=== PATIENT | male | born 1935 | race Caucasian/White ===

== ENCOUNTER 2018-08-29 09:27 | Day surgery (SDC) | payer MEDICARE, OTHER ==
[~2018-08-29] VITALS: Ht 172.7 cm; Wt 86.9 kg
[~2018-08-29 09:27] MED LIST: ASCO500 PO; ASPI81EC PO; CALCIUM-MAG-ZINC PO; FISH1000 PO; LISI20; LISI20 PO; LOVA20; LOVA40 PO; METF500; MULVITA PO; NIFE10; SILD50TA PO; STOMUL PO
== END 2018-08-29 11:33 | disposition home or self-care (01) ==
LOC: ORSCSDS 09:27
PROVIDERS: Internal Medicine Gastroenterology
PROC: 0DBK8ZX Excision of Ascending Colon, Via Natural or Artificial Opening Endoscopic, Diagnostic (ICD-10-PCS; principal; 2018-08-29 10:45)
DX: Z12.11 Encounter for screening for malignant neoplasm of colon (principal); Z86.010 Personal history of colon polyps; K57.30 Diverticulosis of large intestine without perforation or abscess without bleeding; Z80.0 Family history of malignant neoplasm of digestive organs; E11.9 Type 2 diabetes mellitus without complications; G47.30 Sleep apnea, unspecified; Z87.891 Personal history of nicotine dependence; E66.9 Obesity, unspecified; Z68.30 Body mass index [BMI] 30.0-30.9, adult; Z79.82 Long term (current) use of aspirin; Z79.84 Long term (current) use of oral hypoglycemic drugs; Z79.899 Other long term (current) drug therapy
CPT/HCPCS: 82947; 88305; J2704; J7120

== ENCOUNTER 2018-12-14 10:18 | Day surgery (SDC) | payer MEDICARE, OTHER ==
[~2018-12-14] VITALS: Ht 175.3 cm; Wt 88.9 kg
[~2018-12-14 10:18] MED LIST changes: +Aspirin EC81 MG PO; +Glucosamine &1 EACH PO; +METF500C PO
[2018-12-14] MEDS ORDERED: BRIMONIDINE TART5 M1 (11:09)
--- NOTE | 2018-12-14 11:31 | NUR ---
12/14/18 1131 Nadeen Bolden ATTEMPT IV IN LEFT FOREARM & LEFT HAND. IV PLACED BY ORSC.DLB IN LEFT INNER WRIST & RIGHT HAND CAPPED NEEDLE FOR RIGHT CARPAL TUNNEL SURGERY.
--- NOTE | 2018-12-14 11:58 | NUR ---
12/14/18 1158 Rachell Argueta PATIENT HAD A GILBERTO BLOCK PRIOR TO INCISION. PATIENT SEDATED BUT COULD NOT HOLD HIS HAND STRAIGHT OR STILL. PATIENT KEPT TRYING TO REACH UP WITH OPERATIVE HAND. CASE CONVERTED TO A GENERAL ANESTHETIC PER ANESTHESIOLOGIST WITH LMA.
--- NOTE | 2018-12-14 13:34 | NUR ---
12/14/18 1333 Shayna Cleary at 1245 report to [facility]
== END 2018-12-14 13:55 | disposition home or self-care (01) ==
LOC: ORSCSDS 10:18
PROVIDERS: Orthopaedic Surgery
PROC: 01N50ZZ Release Median Nerve, Open Approach (ICD-10-PCS; principal; 2018-12-14 11:30)
DX: G56.01 Carpal tunnel syndrome, right upper limb (principal); I10 Essential (primary) hypertension; Z87.891 Personal history of nicotine dependence; R73.03 Prediabetes; Z79.82 Long term (current) use of aspirin; Z79.84 Long term (current) use of oral hypoglycemic drugs
CPT/HCPCS: 82947; J0690; J1100; J2250; J2405; J3010; J7120

== ENCOUNTER 2023-03-05 01:11 | Inpatient (IN) | payer MEDICARE, OTHER ==
[~2023-03-05] VITALS: Ht 175.3 cm; Wt 88.9 kg
[~2023-03-05 01:11] MED LIST changes: +BRIMONIDINE TART5 M1
[2023-03-05 01:40] LABS: BASOPHILS ABSOLUTE AUTO 0.06 K/mm3 (0.00-0.23); BASOPHILS PERCENT AUTO 0 % (0-2); EOSINOPHILS ABSOLUTE AUTO 0.05 K/mm3 (0.00-0.68); EOSINOPHILS PERCENT AUTO 0 % (0-6); Hemoglobin 13.7 g/dL (13.5-17.5); IMMATURE GRAN ABSOLUTE AUTO 0.05 K/mm3 (0.00-0.10); IMMATURE GRAN PERCENT AUTO 0 % (0-1); LYMPHOCYTES ABSOLUTE AUTO 2.03 K/mm3 (0.84-5.20); LYMPHOCYTES PERCENT AUTO 13 % (21-46); MONOCYTES ABSOLUTE AUTO 0.83 K/mm3 (0.16-1.47); MONOCYTES PERCENT AUTO 5 % (4-13); Mean Corpuscular HGB 31.5 pg (26.0-34.0); Mean Corpuscular HGB Conc 32.6 g/dL (31.5-36.5); Mean Corpuscular Volume 97 fL (80-100); Mean Platelet Volume 10.8 fL (9.1-12.4); NEUTROPHILS ABSOLUTE AUTO 12.46 K/mm3 (1.96-9.15); NEUTROPHILS PERCENT AUTO 81 % (41-73); Platelet Count 246 K/mm3 (150-400); RDW Coefficient Variation 13.2 % (11.7-14.2); RDW Standard Deviation 47.3 fL (35.1-46.3); Red Blood Cell Count 4.35 M/mm3 (4.30-5.90); White Blood Cell Count 15.48 K/mm3 (4.00-11.30)
[2023-03-05 01:59] LABS: Albumin, Blood 3.3 g/dL (3.4-5.0); Albumin/Globulin Ratio 0.8 (0.8-1.8); Bilirubin, Total 0.8 mg/dL (0.1-1.0); Bun/Creatinine Ratio 17.6 (12.0-20.0); Calcium, Blood 9.3 mg/dL (8.5-10.1); Creatinine, Blood 0.91 mg/dL (0.60-1.20); Globulin, Blood 4.4 g/dL (2.2-4.0); Potassium, Blood 4.4 mmol/L (3.5-5.5); Total Protein, Blood 7.7 g/dL (6.4-8.2)
[2023-03-05 03:28] LABS: Influenza A, PCR NEGATIVE (NEGATIVE); Influenza B, PCR NEGATIVE (NEGATIVE); Resp Syncytial Virus, PCR NEGATIVE (NEGATIVE); SARS-Cov-2 (COVID-19) PCR, MMC NEGATIVE (NEGATIVE)
[2023-03-05 03:41] LABS: Anti-Xa UFH, PHA Monitoring <0.10 IU/mL; D-Dimer, Quantitative 0.72 mg/L FEU (0.00-0.52); International Normalized Ratio 0.95
[2023-03-05 03:48] LABS: Magnesium, Blood 1.8 mg/dL (1.6-2.4); Thyroid Stimulating Hormone 3.25 uIU/mL (0.360-4.800)
[2023-03-05 14:01] VITALS: BP 129/95
[2023-03-05 15:33] VITALS: BP 111/47
[2023-03-05] MEDS ORDERED: PIOG15 PO (17:11)
[2023-03-05] MEDS ORDERED: Amaryl1 MG PO (17:12)
--- NOTE | 2023-03-05 18:55 | NUR ---
ADMISSION/SHIFT SUMMARY: PT ARRIVED FROM ER AT APPROX 1400 TODAY. PT ARRIVES A&Ox4, LOS [place]YOTES W/HEARING AIDES, ANSWERS QUESTIONS APPROPRIATELY AND COOPERATIVE W/CARE. PT DYSPNEIC W/ACTIVITY, DENIES SOB AT REST, O2 SATS >93% ON RA. PT DENIES CP SINCE ARRIVAL TO ROOM, AFIB ON MONITOR W/RATE 70s-80s. ECHO COMPLETED IN ER. CARDIOLOGY CONSULT COMPLETED AT BEDSIDE, W/PLAN FOR PROCEDURE TOMORROW, PT TO BE NPO AT MIDNIGHT. HEPARIN INFUSING PER ORDERS. PT WITH C/O NAUSEA, BUT DENIES NEED FOR MEDICATION. PT RESTING QUIETLY IN BED W/CALL LIGHT IN REACH. WILL CONTINUE TO MONITOR AND TREAT ACCORDINGLY UNTIL CHANGE OF SHIFT.
[2023-03-05 20:00] VITALS: BP 116/73
--- NOTE | 2023-03-05 23:02 | NUR ---
ASSUMPTION OF CARE THIS RN ASSUMED CARE OF PT AT 1900, BEDSIDE SHIFT REPORT FROM YVETTE. PT A&O X3-4. VSS. PT DENIES CP OR PRESSURE, DENIES SOB OR PALPITATIONS. PT ALSO DENIES DIZZINESS. PT DENIES ANY GENERAL PAIN AT THIS TIME. PT DENIES ANY NEEDS AT THIS TIME. ATTENDS IN PLACE. PT USING URINAL AT BEDSIDE INDEPENDENTLY. CALL LIGHT IN REACH
[2023-03-06] VITALS (14 sets, daily range): BP systolic 87–142; BP diastolic 52–101
[2023-03-06 05:04] LABS: Bun/Creatinine Ratio 22.5 (12.0-20.0); Calcium, Blood 9.3 mg/dL (8.5-10.1); Creatinine, Blood 1.11 mg/dL (0.60-1.20); Potassium, Blood 4.3 mmol/L (3.5-5.5)
[2023-03-06 05:12] LABS: Hematocrit 39.2 % (37.0-53.0); Hemoglobin 13.4 g/dL (13.5-17.5); Mean Corpuscular HGB 32.1 pg (26.0-34.0); Mean Corpuscular HGB Conc 34.2 g/dL (31.5-36.5); Mean Corpuscular Volume 94 fL (80-100); RDW Coefficient Variation 13.3 % (11.7-14.2); RDW Standard Deviation 45.2 fL (35.1-46.3); Red Blood Cell Count 4.17 M/mm3 (4.30-5.90); White Blood Cell Count 15.45 K/mm3 (4.00-11.30)
[2023-03-06 05:27] LABS: Mean Platelet Volume 11.4 fL (9.1-12.4); Platelet Count 202 K/mm3 (150-400)
--- NOTE | 2023-03-06 05:28 | NUR ---
UPDATE HEPARIN GTT STOPPED PER PHARMACY AT 0500 FOR PROCEDURE THIS AM. PHARMACY NOTIFIED.
--- NOTE | 2023-03-06 06:43 | NUR ---
SHIFT SUMMARY PT REMAINS A&O X 3-4. VSS REMAIN STABLE; HRR REMAIN AFIB W/RATE IN 80'S - 90'S. NO CP OR PRESSURE, SOB, OR DIZZINESS THROUGHOUT THE SHIFT. PT REST ON AND OFF DURING THE NIGHT BUT HAD UNEVENTFUL NIGHT. CONTINUES TO USE URINAL INDEPENDENTLY IN BED. PT HAD BM THIS SHIFT; WNL. HEPARIN STOPPED PER PHARMACY ORDERS FOR PROCEDURE TODAY. PT NPO SINCE 0000 FOR PROCEDURE. WILL UPDATE ONCOMING RN
--- NOTE | 2023-03-06 18:11 | NUR ---
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 DR CRAIG TO BEDSIDE THIS EVENING TO DISCUSS PROCEDURE OPTIONS W/FAMILY, ALL QUESTIONS HAVE BEEN ANSWERED AT THIS TIME, FAMILY TO CONTINUE TO DISCUSS OPTIONS AND LET DR GOMEZ KNOW TOMORROW. PT A&Ox4, VERY AUGUSTINE W/ELSI HEARING AIDS. O2 SATS >92% ON RA, PT DENIES SOB AT REST BUT REPORTS DYPSNEA W/ACTIVITY. AFIB ON MONITOR, RATE 80s-90s, PT DENIES CP. AT THIS TIME, PT IS RESTING QUIETLY IN BED W/CALL LIGHT IN REACH. WILL CONTINUE TO MONITOR AND TREAT ACCORDINGLY UNTIL CHANGE OF SHIFT.
--- NOTE | 2023-03-06 22:39 | NUR ---
PT A&OX4, COOPERATIVE WITH CARE AND ABLE TO MAKE NEEDS KNOWN. 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 PT ON RA AND MAINTAINING O2 SATURATION ABOVE 92%, DENIES SOB. HR AFIB 80'S-90'S, PT DENIES CHEST PAIN/PRESSURE. R RADIAL SITE FROM ANGIO TODAY IS SOFT & NONTENDER, 0 HEMATOMA, 0 PAIN. PT NPO AT MIDNIGHT FOR POSSIBLE PROCEDURE 03/07. PT FELL ASLEEP WATCHING TV, CALL LIGHT WITHIN REACH.
[2023-03-07] VITALS (12 sets, daily range): BP systolic 101–129; BP diastolic 62–97
--- NOTE | 2023-03-07 04:52 | NUR ---
SHIFT SUMMARY PT HAS SLEPT WELL THE MAJORITY OF THE NIGHT. HE WOKE UP A COUPLE TIMES WANTING THE BLANKETS OFF AND THEN WANTING THEM BACK ON. PT CONTINUES TO BE ALERT AND ORIENTED X 4, ABLE TO MAKE NEEDS KNOWN, ELIM IRA. PT CURRENTLY ON 2L NC HIS OXYGEN SATURATION INTERMITTENTLY DROPS INTO HIGH 80'S WHEN SLEEPING, PT DENIES SOB, MAINTAINING 02 SATURATION ABOVE 90%. HR AFIB 100'S, PT DENIES CHEST PAIN/PRESSURE. PT USES URINAL INDEPENDENTLY NEEDED. R RADIAL SITE CONTINUES TO BE NONTENDER/0 HEMATOMA/0 BLEEDING/ NOT PAINFUL. PT SLEEPING IN BED, CALL LIGHT WITHIN REACH.
[2023-03-07 07:45] LABS: Hematocrit 38.3 % (37.0-53.0); Hemoglobin 12.8 g/dL (13.5-17.5); Mean Corpuscular HGB Conc 33.4 g/dL (31.5-36.5); Mean Corpuscular Volume 96 fL (80-100); Mean Platelet Volume 10.7 fL (9.1-12.4); Platelet Count 276 K/mm3 (150-400); RDW Coefficient Variation 13.2 % (11.7-14.2); RDW Standard Deviation 47.4 fL (35.1-46.3); White Blood Cell Count 13.29 K/mm3 (4.00-11.30)
[2023-03-07 08:29] LABS: Anion Gap 6 mmol/L (6-16); Blood Urea Nitrogen 31 mg/dL (8-24); Bun/Creatinine Ratio 29.5 (12.0-20.0); CHOL/HDL RATIO 3.3; CO2, Blood 30 mmol/L (21-32); Calcium, Blood 9.6 mg/dL (8.5-10.1); Chloride, Blood 107 mmol/L (98-108); Cholesterol 207 mg/dL (50-200); Creatinine, Blood 1.05 mg/dL (0.60-1.20); Glomerular Filtration Rate 70 (60-); Glucose, Blood 170 mg/dL (70-99); HDL Cholesterol 62 mg/dL (>39); LDL/HDL RATIO 2.1; Low Density Lipoprotein Chol 128 mg/dL (0-110); Potassium, Blood 3.6 mmol/L (3.5-5.5); Sodium, Blood 143 mmol/L (136-145); Triglycerides 84 mg/dL (30-160); Very Low Density Lipoprot Chol 16 mg/dL (6-32)
--- NOTE | 2023-03-07 08:45 | NUR ---
AM NOTE: PATIENT ALERT AND ORIENTED X4. HARD OF HEARING, BILATERAL HEARING AIDS IN PLACE. DENIES NUMBNESS/TINGLING. DENIES HEADACHE OR VISION CHANGES AT THIS TIME. ON 2L NASAL CANNULA UPON SHIFT START, THIS RN TITRATED TO ROOM AIR AND PATIENT DESATS TO 88%. 2L O2 NASAL CANNULA REPLACED AND PATIENT SATING 96%. DENIES COUGH. DENIES SOB AT REST, PATIENT STATES WITH EXCERTION HE BECOMES INCREASINGLY SHORT OF BREATH AND SWEATY. LUNGS SOUNDING CLEAR AND DIM IN BASES. TELE SHOWING AFIB WITH HR 80-110'S. DENIES CHEST PAIN/PRESSURE/PALPITATIONS. PPP. S/P ANGIO 03/06 WITH RIGHT RADIAL SITE. SITE WNL, TEGADERM AND ARMBOARD IN PLACE. NO SIGNS OF BLEEDING. PATIENT REMINDED OF RADIAL PRECAUTIONS. DENIES ABDOMINAL PAIN/NAUSEA. USING URINAL TO VOID. NPO AT THIS TIME. PLAN FOR CARDIOLOGY MEETING AROUND NOON. PATIENT AND UPDATED. CALL LIGHT IN REACH. PATIENT DENIES NEEDS AT THIS TIME, LAYING IN BED WATCHING TV.
--- NOTE | 2023-03-07 09:42 | NUR ---
PATIENT ROSEANN AT BEDSIDE. THIS RN UPDATED ON MORNING AND PLAN FOR CARDIOLOGY MEETING AROUND NOON.
--- NOTE | 2023-03-07 11:05 | NUR ---
DR. MEDLEY BY TO ASSESS PATIENT, THIS RN AT BEDSIDE. NO NEW ORDERS FOR THIS RN TO PLACE. AWAITING CARDIOLOGY. FAMILY REMAINS AT BEDSIDE. AFTERNOON VITALS STABLE.
--- NOTE | 2023-03-07 12:09 | NUR ---
DR. GOMEZ AND DR. CRAIG BY TO ASSESS PATIENT. PLAN FOR ANGIO WITH STENT PLACEMENT THIS AFTERNOON. CONSENT SIGNED AND IN CHART. PATIENT'S 2 DAUGHTERS AND AT BESIDE FOR PROVIDER VISIT.
--- NOTE | 2023-03-07 13:08 | NUR ---
PATIENT TO [facility] AT THIS TIME.
--- NOTE | 2023-03-07 15:32 | NUR ---
PATIENT RETURNS TO PCU POST SENIOR SQL DATABASE DEVELOPER AT 1528. VITAL SIGNS STABLE, ON ROOM AIR. REMAINS AFIB WITH HR 80'S. DENIES CHEST PAIN/PRESSURE. RIGHT RADIAL SITE WITH TR BAND AND ARM BOARD IN PLACE. PATIENT AND FAMILY AT BEDSIDE INSTRUCTED ON POST ANGIOGRAM RADIAL PRECAUTIONS. PATIENT ABLE TO VERBALIZE TEACHING BACK TO THIS RN. SITE WNL, SOFT AND NONTENDER. PATIENT SITTING UP IN BED WITH RIGHT ARM RESTING ON PILLOWS. CALL LIGHT IN REACH. POST VITALS IN PROGRESS.
--- NOTE | 2023-03-07 18:10 | NUR ---
SHIFT SUMMARY: NO ACUTE CHANGES, SEE PREVIOUS NOTES. NO CHANGES TO TELE. PATIENT REMAINS ON ROOM AIR. S/P ANGIOGRAM VITALS STABLE AND COMPLETED. ALL OF AIR REMOVED FROM TR BAND AT 1803. TR BAND TO BE REMOVED IN ONE HOUR. ARM BOARD REMAINS IN PLACE. SITE WNL, NO SIGNS OF BLEEDING. PATIENT EATING DINNER AT THIS TIME. DENIES NEEDS. CALL LIGHT IN REACH.
--- NOTE | 2023-03-07 20:20 | NUR ---
PT IS ALERT AND ORIENTED X 4, ABLE TO MAKE NEEDS KNOWN AND COOPERATIVE WITH CARE. HE IS HARD OF HEARING AND HAS BILATERAL HEARING AIDS. DAY SHIFT REPORTED THAT PT HAD SMALL NOSE BLEED FROM LEFT NOSTRIL TODAY, WHICH PT SAID IS NORMAL FOR HIM, HE HAS A PIECE OF TISSUE WEDGED INTO HIS LEFT NOSTRIL TO HELP WITH THE BLEEDING, HE DOES NOT WANT TO REMOVE IT RIGHT NOW AND SAID HE WOULD REMOVE IT BEFORE BED. THIS IS WHY PT DOES NOT WANT TO WEAR OXYGEN RIGHT NOW, HE IS ON RA AND OXYGEN SATURATION WILL INTERMITTENTLY DROP INTO THE HIGH 80'S THEN QUICKLY GO BACK UP INTO THE 90'S, PT DOES NOT FEEL SOB. HR AFIB 80'S-110'S, PT DENIES CHEST PAIN/PRESSURE, BP STABLE. ANGIO W/INTERVENTIONS PERFORMED TODAY VIA R RADIAL SITE. SITE HAS NO REDNESS/SWELLING/PAIN/ AND HAS 0 HEMATOMA. TR BAND REMOVED AT APPROXIMATELY 1917, SITE CLEANED, SKIN PREP APPLIED, AND TEGADERM PLACED ON SITE. PT SAID IT WAS A LITTLE TOO TRANSMITTER OPERATOR HIS ROOM, I PLACED A CALL TO MAINTENANCE AND ASKED THEM TO TURN THERMOSTAT TO 68 PER PT REQUEST. PT IS RESTING IN BED & WATCHING TV, CALL LIGHT WITHIN REACH.
[2023-03-08 03:16] VITALS: BP 124/81
--- NOTE | 2023-03-08 04:58 | NUR ---
SHIFT SUMMARY PT CONTINUES TO BE ALERT AND ORIENTED X 4, ABLE TO MAKE NEEDS KNOWN, [place]. PT CURRENTLY ON 2L NC HIS OXYGEN SATURATION INTERMITTENTLY DROPS INTO HIGH 80'S WHEN SLEEPING, PT DENIES SOB, MAINTAINING 02 SATURATION ABOVE 90%. HR AFIB 100'S, PT DENIES CHEST PAIN/PRESSURE. PT USES URINAL INDEPENDENTLY NEEDED. R RADIAL SITE CONTINUES TO BE NONTENDER/0 HEMATOMA/0 BLEEDING/ NOT PAINFUL, ARM BOARD IN PLACE. PT HAS BEEN AWAKE ON AND OFF TONIGHT, HE DONALD HE HAS BEEN HAVING A HARD TIME SLEEPING WHILE IN THE HOSPITAL. PT IS AWAKE IN BED, WATCHING TV, CALL LIGHT WITHIN REACH.
[2023-03-08 08:00] VITALS: BP 125/75
--- NOTE | 2023-03-08 10:22 | NUR ---
0800 ASSUMED CARE PATIENT AWAKE ALERT AND ORIENTED HOWEVER HARD OF HEARING. PATIENT MONTOYA WELL. PATIENT HAS ON ARM BOARD TO RIGHT WRIST WITH TEGADERM ON SITE. PATIENT HAS VOIDED IN URINAL WITHOUT DIFFICULTY. VS STABLE PATIENT FEBRILE. LUNGS ARE CLEAR T/O. ABD SOFT + BOWELTONES PRESENT. PATIENT HAS PIV SL. NO EDEMA TO NOTE. NO PAIN AT THIS TIME. WILL FOLLOW CARE AND TREATMENT PLAN FOR THE DAY.
[2023-03-08] MEDS ORDERED: ELIQUIS2.5 MG PO (11:19)
[2023-03-08] MEDS ORDERED: ASPI81CH PO (11:20)
[2023-03-08] MEDS ORDERED: ATOR80 PO (11:20)
[2023-03-08] MEDS ORDERED: CLOP75 PO (11:21)
[2023-03-08] MEDS ORDERED: JARDIANCE10 MG PO (11:21)
[2023-03-08] MEDS ORDERED: SPIR25 PO (11:22)
[2023-03-08] MEDS ORDERED: METO50ER PO (11:22)
[2023-03-08] MEDS ORDERED: METF500 PO (11:23)
[2023-03-08] MEDS ORDERED: SOAANZ20 M1 PO (11:23)
[2023-03-08] MEDS ORDERED: PANT40 PO (11:24)
[2023-03-08 13:00] VITALS: BP 113/90
--- NOTE | 2023-03-08 13:10 | NUR ---
1230-- PATIENT ATE HIS LUNCH 100%. PATIENT DRESSING TO WALK THE HALLS AND BE DISCHARGED S/P OXYGEN ASSESSMENT NEED. PATIENT WALKED WITH A WALKER OVER 200 FEET WITH SOME TACHYPNEA PRESENT BUT NEVER DROPPED HIS OXYGENATION WHILE ON ROOM AIR. DID DISCHARGE TEACHING AND HAD PRESENT TO HEAR OF THE FUTURE DR APPOINTMENTS AND FUTURE MEDICATIONS THAT HE IS TO CDS SALES ADVISOR AT HIS PHARMACY. SON WAS CALLED TO MEET THEM AT HOME. FILER REPAIRER'S WHEELED HIM OUT TO THE CAR S/P BOTH IV'S DC'D BY PRIMARY RN. DC VITALS STABLE SEE VS NOTE. NO ACUTE CONCERNS AT DC.
== END 2023-03-08 13:10 | disposition home or self-care (01) | DRG 321 ==
LOC: ER 01:11 → PCU 01:12 → ERHOLD 01:12 → PCU 03:10
PROVIDERS: Internal Medicine; Student in an Organized Health Care Education/Training Program; ADMIT Internal Medicine
PROC: B24BZZZ Ultrasonography of Heart with Aorta (ICD-10-PCS; 2023-03-05)
PROC: B2111ZZ Fluoroscopy of Multiple Coronary Arteries using Low Osmolar Contrast (ICD-10-PCS; 2023-03-06)
PROC: 4A023N7 Measurement of Cardiac Sampling and Pressure, Left Heart, Percutaneous Approach (ICD-10-PCS; 2023-03-06)
PROC: 027034Z Dilation of Coronary Artery, One Artery with Drug-eluting Intraluminal Device, Percutaneous Approach (ICD-10-PCS; principal; 2023-03-07)
PROC: 02C03ZZ Extirpation of Matter from Coronary Artery, One Artery, Percutaneous Approach (ICD-10-PCS; 2023-03-07)
PROC: B240ZZ3 Ultrasonography of Single Coronary Artery, Intravascular (ICD-10-PCS; 2023-03-07)
PROC: B2101ZZ Fluoroscopy of Single Coronary Artery using Low Osmolar Contrast (ICD-10-PCS; 2023-03-07)
DX: I21.4 Non-ST elevation (NSTEMI) myocardial infarction (principal); I50.21 Acute systolic (congestive) heart failure; I48.19 Other persistent atrial fibrillation; I35.0 Nonrheumatic aortic (valve) stenosis; E11.9 Type 2 diabetes mellitus without complications; I25.10 Atherosclerotic heart disease of native coronary artery without angina pectoris; I10 Essential (primary) hypertension; Z88.1 Allergy status to other antibiotic agents; Z88.8 Allergy status to other drugs, medicaments and biological substances; Z79.84 Long term (current) use of oral hypoglycemic drugs; Z11.52 Encounter for screening for COVID-19; Z28.21 Immunization not carried out because of patient refusal
CPT/HCPCS: 0241U; 0715T; 36415; 71045; 76937; 80048; 80053; 80061; 83735; 83880; 84145; 84443; 84484; 85025; 85027; 85347; 85379; 85520; 85610; 85730; 92978; 93005; 93010; 93306; 93454; 94761; 96374; 96375; 96376; 99152; 99153; 99285-25; A9270; C1725; C1753; C1761; C1769; C1874; C1887; C1894; C9600; C9602; J0461; J1644; J1940; J2250; J2371; J3010; J7030; J7050; Q9967

== ENCOUNTER 2023-03-09 02:06 | Observation (INO) | payer MEDICARE, OTHER ==
[~2023-03-09] VITALS: Ht 182.9 cm; Wt 88.2 kg
[~2023-03-09 02:06] MED LIST changes: +ASPI81CH PO; +ATOR80 PO; +Amaryl1 MG PO; +CLOP75 PO; +ELIQUIS2.5 MG PO; +JARDIANCE10 MG PO; +METF500 PO; +METO50ER PO; +PANT40 PO; +PIOG15 PO; +SOAANZ20 M1 PO; +SPIR25 PO
[2023-03-09 02:34] LABS: BASOPHILS ABSOLUTE AUTO 0.06 K/mm3 (0.00-0.23); BASOPHILS PERCENT AUTO 1 % (0-2); EOSINOPHILS ABSOLUTE AUTO 0.05 K/mm3 (0.00-0.68); EOSINOPHILS PERCENT AUTO 0 % (0-6); Hematocrit 40.1 % (37.0-53.0); Hemoglobin 13.1 g/dL (13.5-17.5); IMMATURE GRAN ABSOLUTE AUTO 0.04 K/mm3 (0.00-0.10); IMMATURE GRAN PERCENT AUTO 0 % (0-1); LYMPHOCYTES ABSOLUTE AUTO 1.83 K/mm3 (0.84-5.20); LYMPHOCYTES PERCENT AUTO 15 % (21-46); MONOCYTES ABSOLUTE AUTO 0.89 K/mm3 (0.16-1.47); MONOCYTES PERCENT AUTO 7 % (4-13); Mean Corpuscular HGB 31.5 pg (26.0-34.0); Mean Corpuscular HGB Conc 32.7 g/dL (31.5-36.5); Mean Corpuscular Volume 96 fL (80-100); Mean Platelet Volume 10.7 fL (9.1-12.4); NEUTROPHILS ABSOLUTE AUTO 9.79 K/mm3 (1.96-9.15); NEUTROPHILS PERCENT AUTO 77 % (41-73); Platelet Count 320 K/mm3 (150-400); RDW Coefficient Variation 13.1 % (11.7-14.2); RDW Standard Deviation 46.7 fL (35.1-46.3); Red Blood Cell Count 4.16 M/mm3 (4.30-5.90); White Blood Cell Count 12.66 K/mm3 (4.00-11.30)
[2023-03-09 03:14] LABS: Ethanol (Alcohol), Blood, Med <3 mg/dL; Magnesium, Blood 2.2 mg/dL (1.6-2.4); Salicylate <1.7 mg/dL (2.8-20.0)
[2023-03-09 03:20] LABS: Alanine Aminotransfer (ALT/SGP 49 U/L (12-78); Albumin, Blood 3.4 g/dL (3.4-5.0); Albumin/Globulin Ratio 0.7 (0.8-1.8); Alk Phos 85 U/L (50-136); Anion Gap 8 mmol/L (6-16); Aspartate Aminotrans (AST/SGOT 71 U/L (12-37); Bilirubin, Total 0.5 mg/dL (0.1-1.0); Blood Urea Nitrogen 41 mg/dL (8-24); CO2, Blood 29 mmol/L (21-32); Calcium, Blood 9.8 mg/dL (8.5-10.1); Chloride, Blood 102 mmol/L (98-108); Creatinine, Blood 1.28 mg/dL (0.60-1.20); Glomerular Filtration Rate 55 (60-); Glucose, Blood 259 mg/dL (70-99); Phosphorus, Blood 4.1 mg/dL (2.5-4.9); Potassium, Blood 3.9 mmol/L (3.5-5.5); Sodium, Blood 139 mmol/L (136-145); Total Protein, Blood 8.4 g/dL (6.4-8.2)
[2023-03-09 03:21] LABS: Acetaminophen, Random <2.0 ug/mL (10.0-30.0)
[2023-03-09 03:58] LABS: Source, Urine Clean Catch
[2023-03-09 04:04] LABS: Base Excess Venous 1.3 mmol/L; Bicarbonate Venous 26.3 mmol/L (24.0-30.0); PCO2 Venous 29.3 mmHg (38-42); pH Blood Venous 7.52 (7.34-7.37)
[2023-03-09 04:05] LABS: Bilirubin, Urine Neg (Neg); Blood, Urine 5+ (Neg); Glucose Qualitative, Urine 4+ (Neg); Ketones, Urine Neg (Neg); Leukocyte Esterase, Urine Neg (Neg); Nitrite, Urine Neg (Neg); Protein, Urine 1+ (Neg); Specific Gravity, Urine 1.015 (1.003-1.022); Urobilinogen, Urine NORM (Normal)
[2023-03-09 04:24] LABS: Appearance, Urine Hazy (Clear); Color, Urine Yellow (P-Yellow)
[2023-03-09 04:26] LABS: Bacteria Mod /hpf; Red Blood Cells, Urine 50-100 /hpf (0-2); Squamous Epithelial Cells Few /hpf (Few); White Blood Cells, Urine 0-2 /hpf (0-5)
[2023-03-09 04:32] LABS: U Amphetamine Screen Not Detected; U Barbituate Screen Not Detected; U Benzodiazapine Screen Not Detected; U Buprenorphine Screen Not Detected; U Cannabinoids Screen Not Detected; U Cocaine Screen Not Detected; U Methadone Screen Not Detected; U Methamphetamine Screen Not Detected; U Opiates Screen Not Detected; U Oxycodone Screen Not Detected; U Phencyclidine Screen Not Detected; U Propoxyphene Screen Not Detected
[2023-03-09 05:56] LABS: Beta-hydroxybutyrate 2.8 mg/dL (0.2-2.8)
[2023-03-09 06:03] VITALS: BP 141/104
[2023-03-09 07:36] VITALS: BP 122/83
[2023-03-09 16:09] VITALS: BP 142/95
--- NOTE | 2023-03-09 18:01 | NUR ---
PT IS A/OX4, PLEASANT AND COOPERATIVE. THE PT IS UP WITH MINIMAL ASSIST. THE PT WAS UP WALKING IN THE HALLWAY TODAY WITH THE PHYSICAL AND OCCUPATIONAL THERAPIST. THE PT APPEARS TO BE BREATHING EASILY ON RA AT THIS TIME. THE PTS FAMILY WAS IN TO VISIT. CALL LIGHT IN REACH. BEDIN THE LOWEST POSITION.
[2023-03-09 19:39] VITALS: BP 134/89
[2023-03-10 04:10] VITALS: BP 110/83
--- NOTE | 2023-03-10 05:24 | NUR ---
SHIFT SUMMARY NOC PT A/O X 4. PLEASANT AND COOPERATIVE WITH CARE. PT LACTIC ACID INCREASED FROM 2.2 OT 3.3. PLAN IS PO HYDRATION TO RESOLVE LA. PT BEDTIME CBG 193 CNI. PT ON TELE RUNNING AFIB @ 90 BPM. PT HAD 2 SEMI INCONTINENT EPISODES WHERE PT MISSED URINAL IN BED. PT HAS BEEN ABLE TO GET UP TO BATHROOM WITH 1PA FWW. PT IS POST STENT PLACEMENT DAY 4 NOW 2 PLACED IN RCA. PT POSSIBLE DISCHARGE HOME TODAY, IF LA RESOLVES. PT IS CURRENTLY RESTING WITH BED IN LOWEST POSITION, AND CALL LIGHT WITHIN REACH.
[2023-03-10 07:15] VITALS: BP 121/93
[2023-03-10 09:02] VITALS: BP 120/75
[2023-03-10] MEDS ORDERED: Lisinopril2.5 MG PO (11:03)
--- NOTE | 2023-03-10 12:20 | NUR ---
DISCHARGE NOTE- PT WAS GIVEN VERBAL AND WRITTEN DISCHARGE INSTRUCTIONS. SPOUSE HAD QUESTIONS FOR THE MD. DR MEDLEY CAME AND SPOKE TO THE PT AND HIS SPOUSE, THEY HAD NO FURTHER QUESTIONS AT TE TIME OF DISCHARGE. IV AND TELE DC'D PRIOR TO DISCHARGE. PT ESCORTED OUT VIA WC BY THE INVESTIGATION DIVISION LIEUTENANT. NO S&S OF DISTRESS NOTED AT THE TIME OF DISCHARGE.
== END 2023-03-10 12:37 | disposition home health service (06) ==
LOC: ER 02:06 → MEDS 02:07 → ENPENDDIS 03-10 09:35 → MEDS 03-10 12:37
PROVIDERS: Emergency Medicine; ADMIT Internal Medicine
DX: N17.9 Acute kidney failure, unspecified (principal); G92.8 Other toxic encephalopathy; E87.20 Acidosis, unspecified; E86.0 Dehydration; I48.19 Other persistent atrial fibrillation; I21.4 Non-ST elevation (NSTEMI) myocardial infarction; I25.10 Atherosclerotic heart disease of native coronary artery without angina pectoris; I35.0 Nonrheumatic aortic (valve) stenosis; I11.0 Hypertensive heart disease with heart failure; I50.20 Unspecified systolic (congestive) heart failure; E78.5 Hyperlipidemia, unspecified; E11.9 Type 2 diabetes mellitus without complications; Z88.8 Allergy status to other drugs, medicaments and biological substances; Z79.01 Long term (current) use of anticoagulants; Z79.02 Long term (current) use of antithrombotics/antiplatelets; Z79.84 Long term (current) use of oral hypoglycemic drugs; Z79.899 Other long term (current) drug therapy
CPT/HCPCS: 36415; 70450; 71046; 80053; 81001; 82010; 82140; 82803; 82947; 83605; 83735; 84100; 84443; 85025; 93005; 93010; 97110; 97161; 97166; 97530; 97535; 99285-25; A9270; G0378; G0480

== ENCOUNTER 2024-01-16 06:24 | Day surgery (SDC) | payer MEDICARE, OTHER ==
[~2024-01-16] VITALS: Ht 172.7 cm; Wt 79.0 kg
[2024-01-16] VITALS (8 sets, daily range): BP systolic 100–133; BP diastolic 67–103
[~2024-01-16 06:24] MED LIST changes: +Actos15 MG PO; +ELIQUIS2.5 M1 PO; +GLIM2 PO; +Lisinopril2.5 MG PO
[2024-01-16] MEDS ORDERED: NS 1,000 ML IV ONE ×2 (07:30→07:32)
[2024-01-16] MEDS ORDERED: NS 100 ML IV ONE (07:30)
[2024-01-16] MEDS ORDERED: Heparin Sodium 1000 Units/ML 10ML MDV ONE ×2 (07:30→07:32)
[2024-01-16] MEDS ORDERED: NS 250 ML IV ONE (07:30)
[2024-01-16] MEDS ORDERED: Midazolam HCl 1MG / ML 2ML Vial ONE (07:31)
[2024-01-16] MEDS ORDERED: Nitroglycerin 2 MG/20 ML BTL ONE (07:31)
[2024-01-16] MEDS ORDERED: FentaNYL Citrate 50 MCG/ML 2 ML Injection ONE (07:32)
--- NOTE | 2024-01-16 10:04 | NUR ---
Pt returns to recovery from [facility]. alert and oriented. R groin site wnl, no hematoma, no oozing, soft. Pt. supine in bed at this time. Distal pulses palpable. Pt. vss upon arrival to unit. water provided.
--- NOTE | 2024-01-16 10:45 | NUR ---
PT. HOB ELEVATED, SITE CHECKED FREQUENTLY AND REMAINS UNCHANGED FROM PREVIOUS ASSESSMENT. PT. VSS REMAIN STABLE. SNACKS PROVIDED. PT. FAMILY AT BEDSIDE.
--- NOTE | 2024-01-16 12:10 | NUR ---
PT up to ambulate to bathroom, with walker. PT reports he was able to void w/o diffculty. Family remains at bedside. Site assessed after ambulation and site remains wnl, no hematoma. Pt vss remain stable. Discharge instructions reviewed with patient and family.
--- NOTE | 2024-01-16 12:29 | NUR ---
Pt iv removed, cathter intact. Pt. vss remain stable. Right groin site remains unchanged from previous assessment. Site and instructions reviewed with Pt and pt spouse. pt taken via wheel chair to exit, pt daughter to drive pt home.
== END 2024-01-16 23:23 | disposition home or self-care (01) ==
LOC: MHTC 06:24
DX: E11.51 Type 2 diabetes mellitus with diabetic peripheral angiopathy without gangrene (principal); I70.223 Atherosclerosis of native arteries of extremities with rest pain, bilateral legs; I11.0 Hypertensive heart disease with heart failure; I50.20 Unspecified systolic (congestive) heart failure; E78.5 Hyperlipidemia, unspecified; I25.2 Old myocardial infarction; Z88.3 Allergy status to other anti-infective agents; Z88.8 Allergy status to other drugs, medicaments and biological substances; Z79.02 Long term (current) use of antithrombotics/antiplatelets; Z79.01 Long term (current) use of anticoagulants; Z79.84 Long term (current) use of oral hypoglycemic drugs; Z79.899 Other long term (current) drug therapy
CPT/HCPCS: 76937; 85347; 99152; 99153; C1725; C1760; C1769; C1887; C1894; J1644; J2250; J3010; J7030; J7050; Q9967

== ENCOUNTER → 2024-02-29 | Outpatient (CLI) | payer MEDICARE, OTHER | LOC: LAB SHORT 14:13 → LAB 14:13 | DX: S91.209A Unspecified open wound of unspecified toe(s) with damage to nail, initial encounter (principal) | CPT/HCPCS: 87070; 87075; 87077; 87186; 87205 ==

== ENCOUNTER 2024-11-11 11:23 | Emergency (ER) | payer MEDICARE, OTHER ==
[~2024-11-11] VITALS: Ht 172.7 cm; Wt 81.2 kg
[2024-11-11 12:49] LABS: Source, Urine Clean Catch
[2024-11-11 12:55] LABS: BASOPHILS ABSOLUTE AUTO 0.05 K/mm3 (0.00-0.23); BASOPHILS PERCENT AUTO 1 % (0-2); EOSINOPHILS ABSOLUTE AUTO 0.06 K/mm3 (0.00-0.68); EOSINOPHILS PERCENT AUTO 1 % (0-6); Hematocrit 33.7 % (37.0-53.0); Hemoglobin 10.6 g/dL (13.5-17.5); IMMATURE GRAN ABSOLUTE AUTO 0.03 K/mm3 (0.00-0.10); IMMATURE GRAN PERCENT AUTO 0 % (0-1); LYMPHOCYTES ABSOLUTE AUTO 1.58 K/mm3 (0.84-5.20); LYMPHOCYTES PERCENT AUTO 17 % (21-46); MONOCYTES ABSOLUTE AUTO 0.69 K/mm3 (0.16-1.47); MONOCYTES PERCENT AUTO 7 % (4-13); Mean Corpuscular HGB Conc 31.5 g/dL (31.5-36.5); Mean Corpuscular Volume 101 fL (80-100); NEUTROPHILS ABSOLUTE AUTO 7.04 K/mm3 (1.96-9.15); NEUTROPHILS PERCENT AUTO 75 % (41-73); NRBC ABSOLUTE 0.00 K/mm3 (0.00-0.02); NRBC Auto 0.0 /100 WBC (0.0-0.2); Platelet Count 334 K/mm3 (150-400); RDW Coefficient Variation 15.6 % (11.7-14.2); RDW Standard Deviation 58.0 fL (35.1-46.3)
[2024-11-11 13:00] LABS: Bilirubin, Urine Neg (Neg); Glucose Qualitative, Urine Neg (Neg); Ketones, Urine Neg (Neg); Leukocyte Esterase, Urine Neg (Neg); Protein, Urine Neg (Neg); Specific Gravity, Urine 1.015 (1.003-1.022); Urobilinogen, Urine NORM (Normal)
[2024-11-11 13:25] LABS: Color, Urine Pale Yellow (P-Yellow)
[2024-11-11 13:26] LABS: White Blood Cells, Urine 0-2 /hpf (0-5)
[2024-11-11 13:28] LABS: Alanine Aminotransfer (ALT/SGP 19.0 U/L (12-78); Albumin, Blood 2.9 g/dL (3.4-5.0); Albumin/Globulin Ratio 0.6 (0.8-1.8); Anion Gap 9.0 mmol/L (3-11); Aspartate Aminotrans (AST/SGOT 18.0 U/L (12-37); Bilirubin, Total 0.7 mg/dL (0.1-1.0); Blood Urea Nitrogen 45.0 mg/dL (8-24); CO2, Blood 32.0 mmol/L (21-32); Calcium, Blood 9.6 mg/dL (8.5-10.1); Chloride, Blood 98.0 mmol/L (98-108); Creatinine, Blood 1.33 mg/dL (0.60-1.20); Globulin, Blood 4.7 g/dL (2.2-4.0); Glucose, Blood 125.0 mg/dL (70-99); Potassium, Blood 4.0 mmol/L (3.5-5.5); Sodium, Blood 135.0 mmol/L (136-145); Total Protein, Blood 7.6 g/dL (6.4-8.2)
[2024-11-11 13:55] VITALS: BP 101/44
== END 2024-11-11 14:17 | disposition home or self-care (01) ==
LOC: ER 11:23
PROVIDERS: Physician Assistant
DX: I95.89 Other hypotension (principal); L03.032 Cellulitis of left toe; E11.9 Type 2 diabetes mellitus without complications; Z88.1 Allergy status to other antibiotic agents; Z88.8 Allergy status to other drugs, medicaments and biological substances; Z79.01 Long term (current) use of anticoagulants; Z79.82 Long term (current) use of aspirin; Z79.84 Long term (current) use of oral hypoglycemic drugs
CPT/HCPCS: 73630; 80053; 81001; 85025; 93005; 93010; 99285-25

== ENCOUNTER 2025-01-01 08:38 | Observation (INO) | payer MEDICARE, OTHER ==
[2025-01-01] VITALS (11 sets, daily range): BP systolic 98–138; BP diastolic 50–102
[~2025-01-01] VITALS: Ht 172.7 cm; Wt 72.8 kg
[~2025-01-01 08:38] MED LIST changes: +FURO40 PO; +WARF1 PO; +ZOLP5 PO
[2025-01-01] MEDS ORDERED: NS 1,000 ML IV ONE ×2 (09:56→09:58)
[2025-01-01] MEDS ORDERED: NS 500 ML IV ONE ×3 (09:56→14:28)
[2025-01-01] MEDS ORDERED: Heparin Sodium 1000 Units/ML 10ML MDV ONE ×4 (09:56→14:28)
[2025-01-01] MEDS ORDERED: Nitroglycerin 2 MG/20 ML BTL ONE (09:57)
[2025-01-01] MEDS ORDERED: NS 100 ML IV ONE (10:20)
[2025-01-01] MEDS ORDERED: Midazolam HCl 1MG / ML 2ML Vial ONE ×2 (10:37→13:39)
[2025-01-01] MEDS ORDERED: FentaNYL Citrate 50 MCG/ML 2 ML Injection ONE ×2 (10:38→13:39)
[2025-01-01] MEDS ORDERED: Verapamil HCL 2.5 MG/ML 2ML Injection ONE (11:48)
[2025-01-01] MEDS ORDERED: NS 50 ML IV ONE (13:55)
[2025-01-01] MEDS ORDERED: Protamine Sulfate 50 MG Amp ONE (14:59)
--- NOTE | 2025-01-01 15:49 | NUR ---
PATIENT TO RECOVERY ROOM AT 1528 S/P LEFT PERIPHERAL ANGIOGRAM WITH INTERVENTION. PATIENT AWAKE, DENIES C/O PAIN. VSS. RIGHT GROIN SITE SOFT AND NON TENDER W/O HEMATOMA, BLEEDING, OR SWELLING. LEFT PEDAL SITE WNL, DRSG INTACT; AREA SOFT W/O BLEEDING. DOPPLER TO BILAT DP/PT PULSES. 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 PATIENT DAUGHTER IS AT BEDSIDE. DR WILKINS IN TO SEE PATIENT AND UPDATE SIRISHA. BOTH FEET ARE PALE PINK AND COOL WITH GOOD CAP REFILL. WARM BLANKETS PLACED. VSS. PT TOLERATED SIPS OF APPLEJUICE. PT SUPINE IN REVERSE [place].
--- NOTE | 2025-01-01 18:24 | NUR ---
REPORT RECEIVED EARLIER FROM RAMONA HAIRSTON. NOTED SITE RIGHT FEMORAL INTACT, AND LEFT PEDAL INTACT. NO HEMATOMAS AT THAT TIME EITHER SITE, DRESSINGS TO BOTH, SMALL OOZING OLD NOTED AT RIGHT GROIN PER YOVANNY NO CHANGE AT THAT TIME AND MONITORED OOZING, NO CHANGES AT THAT TIME NOTED. CONTINUED WITH PRESENTATION AND ON RECENT ASSESSMENT AT 1750, NOTED MASS DURING PALPATION MEDIALLY, RUSSELL GREENE ARRIVED AND VERIFIED, CONTACTED, STARTED TO HOLD PRESSURE/REDUCE SITE, AND PROVIDER ARRIVED, ASSESSED, AND PLAN FOR ADMISSION NOW WELL, JAH GREENE ARRIVED AND ASSESSED SITE WELL, PENDING ADMISSION, SITE REDUCED, NOTABLY MORE FIRM THAN OPPOSITE LEG HOWEVER, MONITORING. PRESSURE HELD APPROXIMATELY 30 MINUTES TOTAL TIME.
--- NOTE | 2025-01-01 18:50 | NUR ---
AFTER PRESSURE HELD, NO CHANGE TO SITE, FROM OBSERVATION APPEARS INTACT AND UNCHANGED WITH INCREASE IN SIZE OR INDURATION, NO DISCOLORATION OR CHANGES NOTED OTHERWISE. FAMILY LEFT EARLIER, CALLED PCU EARLIER AND TAKEN PATIENT TO PCU 6, WITH RAMONA HAIRSTON. REPORT GIVEN, DISCUSS VS AND NO QUESTIONS, SITE REMAINS SIMILAR, SHOWED WITH NURSES, ORDERS FROM PROVIDER PENDING. SITE OVERALL UNCHANGED EXCEPT OOZE FROM SITE DISPERSED SOME WHEN PRESSURE HELD OVER SITE, OTHERWISE INTACT AND NO CHANGE WITH BLEEDING OR CONCERNS OTHERWISE AT TIME OF TRANSFER. ADVISED TO CONTACT HOSPITALIST IF ANY ADDITIONAL CONCERNS.
--- NOTE | 2025-01-01 19:00 | NUR ---
The pt arrived from the [facility] at approx 1830. He is alert,oriented and appropriate in conversation; hard of hearing and says he left his hearing aids at home. Bedside report received from RAMONA Cueva. Right groin site assessed together and scant amount of blood noted under the CHG dressing. Area around the site is soft and non tender except for area over the pubic area which is very tender but soft. Per report the pt had manual pressure to the right femoral access initially at 1450, and then 3 hours later developed a soft ball sized hematoma in the pubic area, which resolved after manual pressure. Distal pulses on both feet are not palpable but they are easily found with doppler. Toes are pink on both feet; however some of his toes are bandaged and I am told that he has a gangrenous wound. Dr. العلي here to see the patient.
[2025-01-01] MEDS ORDERED: NS 1,000 ML IV SCH (20:00)
[2025-01-01 20:38] LABS: CHOL/HDL RATIO 3.1; Cholesterol 165 mg/dL (50-200); HDL Cholesterol 53 mg/dL (>39); LDL/HDL RATIO 1.8; Low Density Lipoprotein Chol 98 mg/dL (0-110); Triglycerides 71 mg/dL (30-160); Very Low Density Lipoprot Chol 14 mg/dL (6-32)
[2025-01-02 00:39] VITALS: BP 139/75
[2025-01-02 03:37] VITALS: BP 135/89
[2025-01-02 03:57] LABS: BASOPHILS ABSOLUTE AUTO 0.06 K/mm3 (0.00-0.23); BASOPHILS PERCENT AUTO 1 % (0-2); EOSINOPHILS ABSOLUTE AUTO 0.10 K/mm3 (0.00-0.68); EOSINOPHILS PERCENT AUTO 1 % (0-6); Hematocrit 29.1 % (37.0-53.0); Hemoglobin 9.2 g/dL (13.5-17.5); IMMATURE GRAN ABSOLUTE AUTO 0.03 K/mm3 (0.00-0.10); IMMATURE GRAN PERCENT AUTO 0 % (0-1); LYMPHOCYTES ABSOLUTE AUTO 1.84 K/mm3 (0.84-5.20); LYMPHOCYTES PERCENT AUTO 18 % (21-46); MONOCYTES ABSOLUTE AUTO 0.79 K/mm3 (0.16-1.47); MONOCYTES PERCENT AUTO 8 % (4-13); Mean Corpuscular HGB Conc 31.6 g/dL (31.5-36.5); Mean Corpuscular Volume 97 fL (80-100); NEUTROPHILS ABSOLUTE AUTO 7.47 K/mm3 (1.96-9.15); NEUTROPHILS PERCENT AUTO 73 % (41-73); NRBC ABSOLUTE 0.00 K/mm3 (0.00-0.02); NRBC Auto 0.0 /100 WBC (0.0-0.2); Platelet Count 309 K/mm3 (150-400); RDW Coefficient Variation 14.1 % (11.7-14.2); RDW Standard Deviation 50.1 fL (35.1-46.3)
[2025-01-02 04:16] LABS: Prothrombin Time Results 12.0 Sec (9.7-11.5)
--- NOTE | 2025-01-02 05:50 | NUR ---
SHIFT SUMMARY PT A&O X4, FORGETFUL AT TIMES. HE IS HARD OF HEARING. HR IN THE 80'S, AFIB. HE DENIES ANY CP/PRESSURE, NUMB/TINGLING, SBP STABLE. SpO2 >92% ON RA, HE DENIES ANY SOB. PT S/P REVASCULARIZATION ON 01/01. HE HAS RIGHT GROIN SITE. TEGADERM CHG IN PLACE. DIME SIZED AMOUNT OF BLOOD ON TEGADERM. NO BRUISING OR OOZING. AREA SOFT, THE UPPER RIGHT PUBIC AREA IS TENDER ON PALPATION BUT SOFT. PT RESTING IN BED AT THIS TIME. CALL LIGHT IN REACH. WILL MONITOR PT AND REPORT TO ONCOMING RN.
[2025-01-02 06:32] LABS: Alanine Aminotransfer (ALT/SGP 18.0 U/L (12-78); Albumin, Blood 3.1 g/dL (3.4-5.0); Albumin/Globulin Ratio 0.7 (0.8-1.8); Anion Gap 9.0 mmol/L (3-11); Aspartate Aminotrans (AST/SGOT 25.0 U/L (12-37); Bilirubin, Total 0.8 mg/dL (0.1-1.0); Blood Urea Nitrogen 41.0 mg/dL (8-24); CO2, Blood 31.0 mmol/L (21-32); Calcium, Blood 9.1 mg/dL (8.5-10.1); Chloride, Blood 102.0 mmol/L (98-108); Creatinine, Blood 1.14 mg/dL (0.60-1.20); Globulin, Blood 4.4 g/dL (2.2-4.0); Glucose, Blood 141.0 mg/dL (70-99); Potassium, Blood 3.6 mmol/L (3.5-5.5); Sodium, Blood 138.0 mmol/L (136-145); Total Protein, Blood 7.5 g/dL (6.4-8.2)
[2025-01-02 08:54] VITALS: BP 110/77
[2025-01-02 10:08] LABS: Hematocrit 29.5 % (37.0-53.0); Hemoglobin 9.5 g/dL (13.5-17.5); Mean Corpuscular HGB Conc 32.2 g/dL (31.5-36.5); Mean Corpuscular Volume 97 fL (80-100); NRBC ABSOLUTE 0.00 K/mm3 (0.00-0.02); NRBC Auto 0.0 /100 WBC (0.0-0.2); Platelet Count 271 K/mm3 (150-400); RDW Coefficient Variation 14.3 % (11.7-14.2); RDW Standard Deviation 50.5 fL (35.1-46.3)
[2025-01-02 12:02] VITALS: BP 126/67
[2025-01-02] MEDS ORDERED: ATOR20 PO (12:07)
--- NOTE | 2025-01-02 12:42 | NUR ---
DISCHARGE UPDATE DISCHARGE PACKET GONE OVER WITH PT AND DAUGHTER AT 1220. PT DISCHARGED AT 1240 VIA WHEELCHAIR AND ON RA. DISCHARGE PACKET AND PERSONAL BELONGINGS WITH PT AT TIME OF DISCHARGE.
== END 2025-01-02 12:38 | disposition home or self-care (01) ==
LOC: MHTC 08:38 → PCU 18:55 → MHTC 18:56 → PCU 01-02 12:38
PROVIDERS: Family Medicine; Student in an Organized Health Care Education/Training Program; ADMIT Internal Medicine
DX: E11.52 Type 2 diabetes mellitus with diabetic peripheral angiopathy with gangrene (principal); L97.529 Non-pressure chronic ulcer of other part of left foot with unspecified severity; I70.262 Atherosclerosis of native arteries of extremities with gangrene, left leg; I70.235 Atherosclerosis of native arteries of right leg with ulceration of other part of foot; L97.519 Non-pressure chronic ulcer of other part of right foot with unspecified severity; I70.92 Chronic total occlusion of artery of the extremities; I13.0 Hypertensive heart and chronic kidney disease with heart failure and stage 1 through stage 4 chronic kidney disease, or unspecified chronic kidney disease; E11.22 Type 2 diabetes mellitus with diabetic chronic kidney disease; N18.9 Chronic kidney disease, unspecified; I50.21 Acute systolic (congestive) heart failure; I25.10 Atherosclerotic heart disease of native coronary artery without angina pectoris; G47.00 Insomnia, unspecified; I25.2 Old myocardial infarction; I35.0 Nonrheumatic aortic (valve) stenosis; N52.9 Male erectile dysfunction, unspecified; E78.5 Hyperlipidemia, unspecified; Z79.01 Long term (current) use of anticoagulants; Z79.02 Long term (current) use of antithrombotics/antiplatelets; Z79.84 Long term (current) use of oral hypoglycemic drugs; Z79.899 Other long term (current) drug therapy; Z88.8 Allergy status to other drugs, medicaments and biological substances; Z95.5 Presence of coronary angioplasty implant and graft
CPT/HCPCS: 36415; 76937; 80053; 80061; 82947; 83036; 85025; 85027; 85347; 85610; 99152; 99153; A9270; C1725; C1753; C1769; C1887; C1894; G0378; J1644; J2250; J2720; J3010; J7030; J7040; J7050; Q9967

== ENCOUNTER 2025-01-14 09:26 | Day surgery (SDC) | payer MEDICARE, OTHER ==
[~2025-01-14] VITALS: Ht 172.7 cm; Wt 77.0 kg
[2025-01-14] VITALS (8 sets, daily range): BP systolic 102–128; BP diastolic 55–91
[~2025-01-14 09:26] MED LIST changes: +ATOR20 PO
[2025-01-14] MEDS ORDERED: Prinivil10 MG PO (10:25)
[2025-01-14] MEDS ORDERED: METO2.5 PO (10:26)
[2025-01-14] MEDS ORDERED: Heparin Sodium 1000 Units/ML 10ML MDV ONE (11:36)
[2025-01-14] MEDS ORDERED: NS 1,000 ML IV ONE ×2 (11:36→11:42)
[2025-01-14] MEDS ORDERED: NS 0 ML IV ONE (11:36)
[2025-01-14] MEDS ORDERED: NS 250 ML IV ONE (11:37)
[2025-01-14] MEDS ORDERED: Nitroglycerin 2 MG/20 ML BTL ONE (11:37)
[2025-01-14] MEDS ORDERED: NS 500 ML IV ONE (11:48)
[2025-01-14] MEDS ORDERED: FentaNYL Citrate 50 MCG/ML 2 ML Injection ONE (11:49)
[2025-01-14] MEDS ORDERED: Midazolam HCl 1MG / ML 2ML Vial ONE (11:49)
[2025-01-14] MEDS ORDERED: Verapamil HCL 2.5 MG/ML 2ML Injection ONE (13:00)
--- NOTE | 2025-01-14 15:30 | NUR ---
REPORT RECEIVED, PATIENT ARRIVES, HEMATOMA REMAINS IN APPEARANCE UNCHANGED SINCE THIS AM ON RIGHT GROIN, LEFT GROIN INTACT, NO HEMATOMA OR CONCERNS OF NOTE, RIGHT POSTERIOR TIBIAL ACCESS APPEAR INTACT, NO HEMATOMA OR CONCERNS WELL, MANUAL PRESSURE TO BOTH, NO HEPARIN GIVEN, PROVIDER ARRIVED, CONCERN WITH PSEUDOCYST RIGHT GROIN, WILL MAP AND MONITOR FOR TIMEFRAME SPECIFIED POST PROCEDURE ORDERS. DAUGHTER HERE WELL, SPOKE WITH PROVIDER AND DISCUSSED CONCERNS. DOPPLER X 4 TO PULSES, FEINT TIBIAL BILATERAL, MODERATE ON LEFT DP, STRONG ON RIGHT DP. DISCHARGE OTHERWISE PENDING.
--- NOTE | 2025-01-14 17:09 | NUR ---
BEGAN TO SIT PATIENT UP, MAPPED RIGHT HIP AREA EARLIER FROM PRIOR PROCEDURE WEEKS AGO, BRUISING AREA MAPPED, HEMATOMA FELT UNDERNEATH WELL, NOT APPEARING TO GROW OR CHANGE, LEFT HIP REMAINS INTACT, SOFT, NO CONCERNS AND RIGHT POSTERIOR TIBIAL WELL INTACT WITHOUT CONCERNS. VSS, REVIEWED D/C INSTRUCTIONS, HOLDING WARFARIN, AND FOLLOW UP APPOINTMENT SCHEDULED, ALSO ENCOURAGED DAUGHTER TO CALL WITH BLEED DUE TO RISKS WITH PRIOR BLEED AND PATIENT FRAGILITY. FOR OTHER ISSUES TO CALL OR RETURN DAUGHTER RECENTLY MOVED HERE FROM [place]. DAUGHTER BONNIE. OTHERWISE PENDING D/C HOME.
--- NOTE | 2025-01-14 17:46 | NUR ---
PATIENT SAT UP FULLY THEN ASSIST TO W/C AFTER DRESSED, VS REMAIN STABLE, ALL 3 SITES UNCHANGED, MAPPING UNCHANGED, NO HEMATOMAS LEFT FEMORAL OR RIGHT POSTERIOR TIBIAL (PT). PATIENT TAKEN BY W/C BY DAUGHTER BONNIE, LEFT UNIT AT 1745, ENCOURAGED TO CALL OR RETURN IF ANY ISSUES OR CONCERNS; SECURITY FOUND BONNIE AND RETURNED HER RENTAL CAR CANCHOLA WELL PRIOR TO PATIENT D/C. MARKET RESEARCH INTERVIEWER JOSE MANUEL.
== END 2025-01-14 15:45 | disposition home or self-care (01) ==
LOC: MHTC 09:26
DX: E11.52 Type 2 diabetes mellitus with diabetic peripheral angiopathy with gangrene (principal); L97.519 Non-pressure chronic ulcer of other part of right foot with unspecified severity; L97.529 Non-pressure chronic ulcer of other part of left foot with unspecified severity; E11.621 Type 2 diabetes mellitus with foot ulcer; E78.5 Hyperlipidemia, unspecified; I25.10 Atherosclerotic heart disease of native coronary artery without angina pectoris; I25.2 Old myocardial infarction; I50.20 Unspecified systolic (congestive) heart failure; Z79.02 Long term (current) use of antithrombotics/antiplatelets; Z79.84 Long term (current) use of oral hypoglycemic drugs; Z79.01 Long term (current) use of anticoagulants; Z79.899 Other long term (current) drug therapy; Z88.8 Allergy status to other drugs, medicaments and biological substances
CPT/HCPCS: 36140; 75710; 75774; 76937; 99152; 99153; C1769; C1887; C1894; J1644; J2250; J3010; J7030; J7040; J7050; Q9967

== ENCOUNTER 2025-01-27 01:36 | Day surgery (SDC) | payer MEDICARE, OTHER ==
[~2025-01-27 01:36] MED LIST changes: +METO2.5 PO; +Prinivil10 MG PO
[2025-01-27] MEDS ORDERED: Lidocaine HCl 4% Cream 5 GM ONE (08:36)
== END 2025-01-27 23:00 | disposition home or self-care (01) ==
LOC: WOUND 01:36
DX: E11.621 Type 2 diabetes mellitus with foot ulcer (principal); L97.512 Non-pressure chronic ulcer of other part of right foot with fat layer exposed; L97.526 Non-pressure chronic ulcer of other part of left foot with bone involvement without evidence of necrosis; E11.40 Type 2 diabetes mellitus with diabetic neuropathy, unspecified; E11.51 Type 2 diabetes mellitus with diabetic peripheral angiopathy without gangrene; I25.10 Atherosclerotic heart disease of native coronary artery without angina pectoris; E11.42 Type 2 diabetes mellitus with diabetic polyneuropathy; L97.519 Non-pressure chronic ulcer of other part of right foot with unspecified severity; M86.671 Other chronic osteomyelitis, right ankle and foot; M89.571 Osteolysis, right ankle and foot
CPT/HCPCS: 73630; A9270; G0463

== ENCOUNTER 2025-02-04 00:48 | Day surgery (SDC) | payer MEDICARE, OTHER ==
[2025-02-04] MEDS ORDERED: Lidocaine HCl 4% Cream 5 GM ONE (13:41)
== END 2025-02-04 23:00 | disposition home or self-care (01) ==
LOC: WOUND 00:48
DX: E11.621 Type 2 diabetes mellitus with foot ulcer (principal); L97.526 Non-pressure chronic ulcer of other part of left foot with bone involvement without evidence of necrosis; L97.512 Non-pressure chronic ulcer of other part of right foot with fat layer exposed; E11.51 Type 2 diabetes mellitus with diabetic peripheral angiopathy without gangrene; E11.40 Type 2 diabetes mellitus with diabetic neuropathy, unspecified; Z01.812 Encounter for preprocedural laboratory examination; Z51.81 Encounter for therapeutic drug level monitoring; I10 Essential (primary) hypertension; I48.91 Unspecified atrial fibrillation; Z79.01 Long term (current) use of anticoagulants
CPT/HCPCS: 36415; 80048; 80076; 83036; 85025; 85610; A9270; G0463

== ENCOUNTER 2025-02-06 11:15 | Day surgery (SDC) | payer MEDICARE, OTHER ==
[~2025-02-06] VITALS: Ht 172.7 cm; Wt 71.3 kg
[2025-02-06] MEDS ORDERED: CeFAZolin Sodium 2,000 MG VIAL ONE (11:27)
--- NOTE | 2025-02-06 12:34 | NUR ---
02/06/25 1234 SHASHIDEE DEE DAUGHTER AT BEDSIDE T/O ADMISSION. PT HARD OF HEARING AND SLOW TO RESPOND, BUT ALERT AND ORIENTED X4
[2025-02-06] MEDS ORDERED: Bupivacaine 0.5% HCl 5 MG/ML 30MLVIAL INJ ONE ×2 (12:51)
[2025-02-06 13:19] VITALS: BP 132/102
--- NOTE | 2025-02-06 14:15 | NUR ---
02/06/25 1415 Alem Huizar PT'S DAUGHTER AT BEDSIDE, PT'S DAUGHTER, BONNIE, ASKED WHEN TO RESTART THE 2 BLOOD THINNERS. THIS RN TEXTED DR. PRICE, TO ASK WHEN HE'D LIKE THIS PT TO RESTART IT. DR. PRICE GOT BACK QUICKLY, AND HE WOULD LIKE PT TO RESTART BOTH BLOOD THINNERS TOMORROW.
== END 2025-02-06 14:12 | disposition home or self-care (01) ==
LOC: ORSCSDS 11:15
PROVIDERS: Podiatrist Foot & Ankle Surgery
PROC: 0Y6S0Z0 Detachment at Left 2nd Toe, Complete, Open Approach (ICD-10-PCS; principal; 2025-02-06 12:30)
DX: E11.621 Type 2 diabetes mellitus with foot ulcer (principal); E11.69 Type 2 diabetes mellitus with other specified complication; M86.172 Other acute osteomyelitis, left ankle and foot; I48.91 Unspecified atrial fibrillation; I25.10 Atherosclerotic heart disease of native coronary artery without angina pectoris; I25.2 Old myocardial infarction; I50.9 Heart failure, unspecified; Z79.01 Long term (current) use of anticoagulants; Z79.84 Long term (current) use of oral hypoglycemic drugs; Z79.899 Other long term (current) drug therapy
CPT/HCPCS: 82947; 88305; 88311; A6253; J0690; J2704

== ENCOUNTER 2025-02-12 00:23 | Day surgery (SDC) | payer MEDICARE, OTHER ==
[2025-02-12] MEDS ORDERED: Lidocaine HCl 4% Cream 5 GM ONE (10:22)
== END 2025-02-12 23:00 | disposition home or self-care (01) ==
LOC: WOUND 00:23
DX: E11.621 Type 2 diabetes mellitus with foot ulcer (principal); L97.512 Non-pressure chronic ulcer of other part of right foot with fat layer exposed; L97.521 Non-pressure chronic ulcer of other part of left foot limited to breakdown of skin; E11.51 Type 2 diabetes mellitus with diabetic peripheral angiopathy without gangrene; E11.69 Type 2 diabetes mellitus with other specified complication; M86.671 Other chronic osteomyelitis, right ankle and foot; E11.40 Type 2 diabetes mellitus with diabetic neuropathy, unspecified
CPT/HCPCS: A9270

== ENCOUNTER 2025-02-17 10:13 | Day surgery (SDC) | payer MEDICARE, OTHER ==
[2025-02-17] MEDS ORDERED: Lidocaine HCl 4% Cream 5 GM ONE (11:46)
== END 2025-02-17 23:17 | disposition home or self-care (01) ==
LOC: WOUND 10:13
DX: E11.621 Type 2 diabetes mellitus with foot ulcer (principal); L97.512 Non-pressure chronic ulcer of other part of right foot with fat layer exposed; E11.51 Type 2 diabetes mellitus with diabetic peripheral angiopathy without gangrene; E11.69 Type 2 diabetes mellitus with other specified complication; M86.671 Other chronic osteomyelitis, right ankle and foot
CPT/HCPCS: A9270

== ENCOUNTER 2025-02-19 12:53 | Emergency (ER) | payer MEDICARE, OTHER ==
[~2025-02-19] VITALS: Ht 175.3 cm; Wt 77.1 kg
[2025-02-19] MEDS ORDERED: NS 1,000 ML IV SCH (13:05)
[2025-02-19] MEDS ORDERED: Diltiazem HCl 5 MG / ML 5ML Vial IV ONE (13:15)
[2025-02-19 13:30] LABS: BASOPHILS ABSOLUTE AUTO 0.04 K/mm3 (0.00-0.23); BASOPHILS PERCENT AUTO 0 % (0-2); EOSINOPHILS ABSOLUTE AUTO 0.01 K/mm3 (0.00-0.68); EOSINOPHILS PERCENT AUTO 0 % (0-6); Hematocrit 26.9 % (37.0-53.0); Hemoglobin 8.5 g/dL (13.5-17.5); IMMATURE GRAN ABSOLUTE AUTO 0.03 K/mm3 (0.00-0.10); IMMATURE GRAN PERCENT AUTO 0 % (0-1); LYMPHOCYTES ABSOLUTE AUTO 0.88 K/mm3 (0.84-5.20); LYMPHOCYTES PERCENT AUTO 8 % (21-46); MONOCYTES ABSOLUTE AUTO 0.38 K/mm3 (0.16-1.47); MONOCYTES PERCENT AUTO 4 % (4-13); Mean Corpuscular HGB Conc 31.6 g/dL (31.5-36.5); Mean Corpuscular Volume 94 fL (80-100); NEUTROPHILS ABSOLUTE AUTO 9.53 K/mm3 (1.96-9.15); NEUTROPHILS PERCENT AUTO 88 % (41-73); NRBC ABSOLUTE 0.00 K/mm3 (0.00-0.02); NRBC Auto 0.0 /100 WBC (0.0-0.2); Platelet Count 353 K/mm3 (150-400); RDW Coefficient Variation 15.6 % (11.7-14.2); RDW Standard Deviation 53.7 fL (35.1-46.3)
[2025-02-19 14:09] LABS: Anion Gap 9.0 mmol/L (3-11); Blood Urea Nitrogen 36.0 mg/dL (8-24); CO2, Blood 29.0 mmol/L (21-32); Calcium, Blood 9.6 mg/dL (8.5-10.1); Chloride, Blood 100.0 mmol/L (98-108); Creatinine, Blood 0.99 mg/dL (0.60-1.20); Glucose, Blood 202.0 mg/dL (70-99); Magnesium, Blood 1.5 mg/dL (1.6-2.4); Potassium, Blood 4.2 mmol/L (3.5-5.5); Sodium, Blood 134.0 mmol/L (136-145); Thyroid Stimulating Hormone 8.27 uIU/mL (0.360-4.800)
[2025-02-19] MEDS ORDERED: Metoprolol Tartrate 1 MG/ML 5 ML VIAL IV ONE (14:45)
[2025-02-19 15:15] LABS: Prothrombin Time Results 16.6 Sec (9.7-11.5)
[2025-02-19 17:58] VITALS: BP 144/67
== END 2025-02-19 18:25 | disposition home or self-care (01) ==
LOC: ER 12:53
PROVIDERS: Emergency Medicine
DX: S00.81XA Abrasion of other part of head, initial encounter (principal); W18.39XA Other fall on same level, initial encounter; I48.91 Unspecified atrial fibrillation; E86.0 Dehydration; E87.20 Acidosis, unspecified; D64.9 Anemia, unspecified; J90 Pleural effusion, not elsewhere classified; E87.1 Hypo-osmolality and hyponatremia; E11.9 Type 2 diabetes mellitus without complications; Z88.8 Allergy status to other drugs, medicaments and biological substances; Z79.01 Long term (current) use of anticoagulants; Z79.899 Other long term (current) drug therapy; Z79.84 Long term (current) use of oral hypoglycemic drugs; Z98.890 Other specified postprocedural states
CPT/HCPCS: 70450; 71045; 72125; 72170; 80048; 82607; 83605; 83735; 84439; 84443; 85025; 85610; 85730; 93005; 93010; 96374; 96375; 99285-25; J7030; L0160

== ENCOUNTER 2025-02-26 00:39 | Day surgery (SDC) | payer MEDICARE, OTHER ==
[2025-02-26] MEDS ORDERED: Lidocaine HCl 4% Cream 5 GM ONE (10:04)
== END 2025-02-26 23:00 | disposition home or self-care (01) ==
LOC: WOUND 00:39
DX: E11.621 Type 2 diabetes mellitus with foot ulcer (principal); L97.512 Non-pressure chronic ulcer of other part of right foot with fat layer exposed; S91.109D Unspecified open wound of unspecified toe(s) without damage to nail, subsequent encounter; E11.51 Type 2 diabetes mellitus with diabetic peripheral angiopathy without gangrene; E11.40 Type 2 diabetes mellitus with diabetic neuropathy, unspecified; I25.10 Atherosclerotic heart disease of native coronary artery without angina pectoris
CPT/HCPCS: A9270

== ENCOUNTER 2025-03-05 01:31 | Day surgery (SDC) | payer MEDICARE, OTHER ==
[2025-03-05] MEDS ORDERED: Lidocaine HCl 4% Cream 5 GM ONE (11:00)
== END 2025-03-05 23:00 | disposition home or self-care (01) ==
LOC: WOUND 01:31
DX: E11.621 Type 2 diabetes mellitus with foot ulcer (principal); L97.512 Non-pressure chronic ulcer of other part of right foot with fat layer exposed; L97.522 Non-pressure chronic ulcer of other part of left foot with fat layer exposed; E11.51 Type 2 diabetes mellitus with diabetic peripheral angiopathy without gangrene; E11.69 Type 2 diabetes mellitus with other specified complication; M86.671 Other chronic osteomyelitis, right ankle and foot
CPT/HCPCS: A6213; A9270; G0463

== ENCOUNTER 2025-03-07 17:04 | Emergency (ER) | payer MEDICARE, OTHER ==
[~2025-03-07] VITALS: Ht 170.2 cm; Wt 77.1 kg
[2025-03-07 17:57] LABS: BASOPHILS ABSOLUTE AUTO 0.05 K/mm3 (0.00-0.23); BASOPHILS PERCENT AUTO 1 % (0-2); EOSINOPHILS ABSOLUTE AUTO 0.03 K/mm3 (0.00-0.68); EOSINOPHILS PERCENT AUTO 0 % (0-6); Hematocrit 27.3 % (37.0-53.0); Hemoglobin 8.5 g/dL (13.5-17.5); IMMATURE GRAN ABSOLUTE AUTO 0.03 K/mm3 (0.00-0.10); IMMATURE GRAN PERCENT AUTO 0 % (0-1); LYMPHOCYTES ABSOLUTE AUTO 1.26 K/mm3 (0.84-5.20); LYMPHOCYTES PERCENT AUTO 14 % (21-46); MONOCYTES ABSOLUTE AUTO 0.75 K/mm3 (0.16-1.47); MONOCYTES PERCENT AUTO 9 % (4-13); Mean Corpuscular HGB Conc 31.1 g/dL (31.5-36.5); Mean Corpuscular Volume 95 fL (80-100); NEUTROPHILS ABSOLUTE AUTO 6.62 K/mm3 (1.96-9.15); NEUTROPHILS PERCENT AUTO 76 % (41-73); NRBC ABSOLUTE 0.00 K/mm3 (0.00-0.02); NRBC Auto 0.0 /100 WBC (0.0-0.2); Platelet Count 398 K/mm3 (150-400); RDW Coefficient Variation 16.3 % (11.7-14.2); RDW Standard Deviation 56.6 fL (35.1-46.3)
[2025-03-07 18:18] LABS: Alanine Aminotransfer (ALT/SGP 22.0 U/L (12-78); Albumin, Blood 2.9 g/dL (3.4-5.0); Albumin/Globulin Ratio 0.6 (0.8-1.8); Anion Gap 8.0 mmol/L (3-11); Aspartate Aminotrans (AST/SGOT 26.0 U/L (12-37); Bilirubin, Total 0.9 mg/dL (0.1-1.0); Blood Urea Nitrogen 40.0 mg/dL (8-24); CO2, Blood 31.0 mmol/L (21-32); Calcium, Blood 9.0 mg/dL (8.5-10.1); Chloride, Blood 100.0 mmol/L (98-108); Creatinine, Blood 1.12 mg/dL (0.60-1.20); Globulin, Blood 4.5 g/dL (2.2-4.0); Glucose, Blood 130.0 mg/dL (70-99); Potassium, Blood 4.0 mmol/L (3.5-5.5); Sodium, Blood 135.0 mmol/L (136-145); Total Protein, Blood 7.4 g/dL (6.4-8.2)
[2025-03-07 21:05] LABS: Source, Urine Clean Catch
[2025-03-07 21:10] LABS: Bilirubin, Urine Neg (Neg); Color, Urine Yellow (P-Yellow); Glucose Qualitative, Urine Neg (Neg); Ketones, Urine Neg (Neg); Leukocyte Esterase, Urine 1+ (Neg); Protein, Urine Neg (Neg); Specific Gravity, Urine 1.015 (1.003-1.022); Urobilinogen, Urine NORM (Normal)
[2025-03-07 21:41] LABS: Prothrombin Time Results 16.1 Sec (9.7-11.5)
[2025-03-07] MEDS ORDERED: Metoprolol Tartrate 1 MG/ML 5 ML VIAL IV ONE (22:00)
[2025-03-08 00:26] VITALS: BP 107/62
== END 2025-03-08 00:27 | disposition home or self-care (01) ==
LOC: ER 17:04
PROVIDERS: Emergency Medicine; Student in an Organized Health Care Education/Training Program
DX: I48.91 Unspecified atrial fibrillation (principal); J90 Pleural effusion, not elsewhere classified; I12.9 Hypertensive chronic kidney disease with stage 1 through stage 4 chronic kidney disease, or unspecified chronic kidney disease; E11.22 Type 2 diabetes mellitus with diabetic chronic kidney disease; D63.1 Anemia in chronic kidney disease; J96.10 Chronic respiratory failure, unspecified whether with hypoxia or hypercapnia; E78.5 Hyperlipidemia, unspecified; Z88.8 Allergy status to other drugs, medicaments and biological substances; Z79.01 Long term (current) use of anticoagulants
CPT/HCPCS: 71046; 80053; 81001; 84484; 85025; 85610; 87077; 87086; 87186; 93005; 93010; 96374; 99285-25

== ENCOUNTER 2025-03-26 01:14 | Day surgery (SDC) | payer MEDICARE, OTHER ==
[2025-03-26] MEDS ORDERED: Lidocaine HCl 4% Cream 5 GM ONE (13:04)
[2025-03-27] MEDS ORDERED: METO25ER PO (15:47)
== END 2025-03-26 23:00 | disposition home or self-care (01) ==
LOC: WOUND 01:14
DX: E11.621 Type 2 diabetes mellitus with foot ulcer (principal); L97.512 Non-pressure chronic ulcer of other part of right foot with fat layer exposed; L97.522 Non-pressure chronic ulcer of other part of left foot with fat layer exposed; L89.153 Pressure ulcer of sacral region, stage 3; L97.812 Non-pressure chronic ulcer of other part of right lower leg with fat layer exposed; L89.512 Pressure ulcer of right ankle, stage 2; E11.51 Type 2 diabetes mellitus with diabetic peripheral angiopathy without gangrene; M86.671 Other chronic osteomyelitis, right ankle and foot; Z89.422 Acquired absence of other left toe(s)
CPT/HCPCS: A6213; A9270; G0463

== ENCOUNTER 2025-03-27 10:09 | Observation (INO) | payer MEDICARE, OTHER ==
[~2025-03-27] VITALS: Ht 172.7 cm; Wt 77.1 kg
[2025-03-27 10:42] LABS: BASOPHILS ABSOLUTE AUTO 0.04 K/mm3 (0.00-0.23); BASOPHILS PERCENT AUTO 0 % (0-2); EOSINOPHILS ABSOLUTE AUTO 0.00 K/mm3 (0.00-0.68); EOSINOPHILS PERCENT AUTO 0 % (0-6); Hematocrit 27.5 % (37.0-53.0); Hemoglobin 8.5 g/dL (13.5-17.5); IMMATURE GRAN ABSOLUTE AUTO 0.04 K/mm3 (0.00-0.10); IMMATURE GRAN PERCENT AUTO 0 % (0-1); LYMPHOCYTES ABSOLUTE AUTO 0.89 K/mm3 (0.84-5.20); LYMPHOCYTES PERCENT AUTO 8 % (21-46); MONOCYTES ABSOLUTE AUTO 0.62 K/mm3 (0.16-1.47); MONOCYTES PERCENT AUTO 5 % (4-13); Mean Corpuscular HGB Conc 30.9 g/dL (31.5-36.5); Mean Corpuscular Volume 92 fL (80-100); NEUTROPHILS ABSOLUTE AUTO 10.15 K/mm3 (1.96-9.15); NEUTROPHILS PERCENT AUTO 87 % (41-73); NRBC ABSOLUTE 0.00 K/mm3 (0.00-0.02); NRBC Auto 0.0 /100 WBC (0.0-0.2); Platelet Count 364 K/mm3 (150-400); RDW Coefficient Variation 16.1 % (11.7-14.2); RDW Standard Deviation 54.1 fL (35.1-46.3)
[2025-03-27 10:59] LABS: Alanine Aminotransfer (ALT/SGP 31.0 U/L (12-78); Albumin, Blood 2.6 g/dL (3.4-5.0); Albumin/Globulin Ratio 0.6 (0.8-1.8); Anion Gap 13.0 mmol/L (3-11); Aspartate Aminotrans (AST/SGOT 44.0 U/L (12-37); Bilirubin, Total 0.7 mg/dL (0.1-1.0); Blood Urea Nitrogen 65.0 mg/dL (8-24); CO2, Blood 28.0 mmol/L (21-32); Calcium, Blood 9.0 mg/dL (8.5-10.1); Chloride, Blood 94.0 mmol/L (98-108); Creatinine, Blood 2.63 mg/dL (0.60-1.20); Globulin, Blood 4.7 g/dL (2.2-4.0); Glucose, Blood 114.0 mg/dL (70-99); Potassium, Blood 4.7 mmol/L (3.5-5.5); Sodium, Blood 130.0 mmol/L (136-145); Total Protein, Blood 7.3 g/dL (6.4-8.2)
[2025-03-27 11:00] LABS: Source, Urine Straight Cath
[2025-03-27 11:04] LABS: Color, Urine Yellow (P-Yellow); Glucose Qualitative, Urine Neg (Neg); Ketones, Urine Neg (Neg); Leukocyte Esterase, Urine 1+ (Neg); Protein, Urine 2+ (Neg); Specific Gravity, Urine 1.025 (1.003-1.022); Urobilinogen, Urine NORM (Normal)
[2025-03-27 11:09] LABS: Bilirubin, Urine 1+ (Neg)
[2025-03-27 11:11] LABS: Red Blood Cells, Urine 50-100 /hpf (0-2)
[2025-03-27] MEDS ORDERED: NS 1,000 ML IV SCH (11:15)
[2025-03-27] MEDS ORDERED: CefTRIAXone Sodium 1,000 MG in NS 100 ML IV ONE (11:15)
[2025-03-27 11:17] LABS: U Amphetamine Screen Not Detected; U Barbiturate Screen Not Detected; U Benzodiazapine Screen DETECTED; U Buprenorphine Screen Not Detected; U Cannabinoids Screen Not Detected; U Cocaine Screen Not Detected; U Methadone Screen Not Detected; U Methamphetamine Screen Not Detected; U Opiates Screen Not Detected; U Oxycodone Screen Not Detected; U Phencyclidine Screen Not Detected
[2025-03-27] MEDS ORDERED: Morphine Sulfate 10 MG/ML 1MLSYR INH PRN (13:15)
[2025-03-27] MEDS ORDERED: Ondansetron 4 MG SoluTab MM PRN (13:55)
[2025-03-27] MEDS ORDERED: Morphine Sulfate 20 MG/1ML 1 ML Oral Syringe PO PRN (14:20)
[2025-03-27 14:33] VITALS: BP 141/103
[2025-03-27] MEDS ORDERED: METO25ER PO (15:47)
--- NOTE | 2025-03-27 17:08 | NUR ---
PT RESTLESS, PULLING AT BANDAGES. PTS DAUGHTER AT BEDSIDE. ATIVAN 1MG GIVEN WITH SMALL BITE OF PUDDING. PT ABLE TO SWALLOW PILL WITHOUT COUGHING OR CHOKING. DOES NOT OPEN MOUTH WHEN OFFERED ADDITIONAL BITES AND UNABLE TO TAKE SIP OF WATER THROUGH STRAW
--- NOTE | 2025-03-27 18:10 | NUR ---
NOTE PT RESTING QUIETLY. FAMILY AT BEDSIDE. VERY SUPPORTIVE AND INVOLVED. WOUND CARE WITH PICTURES DONE UNDER THEIR INSTRUCTION. FAMILY BROUGHT IN A SHEET OF SILVER AQUACEL FOR PT LE WEEPING WOUNDS. ROXANOL 5MG X1 GIVEN. PT STARTED PICKING COTTON. MEDCIATED WITH ATIVAN 1MG SL. EFFECTIVE. PT RESTING QUIETLY. DAUGHTER AT BEDSIDE. INCONTINET OF URINE. ATTENDS ON. HEBERT ARE SKIN CD&I. COCCYX DRESSING INTACT. PILLOWS USED TO POSTION AND SUPPORT PT SKIN. PINK FOAM HEEL PROTECTORS APPLIED TO FEET. CARE ONGOING.
--- NOTE | 2025-03-28 04:42 | NUR ---
PT HAD UNEVENTFUL EVENING. Q2 TURNS TO PREVENT SKIN BREAKDOWN, MEPALEX APPLIED TO COCCYX, AND HEEL PROTECTORS ADDED TO FEET. MEDICATED PER MAR THROUGHOUT THE NIGHT TO PRESERVE COMFORT. PT CONSISTENTLY TEARS AWAY BRIEF AND DOES NOT PREFER TO BE MOVED, TENDS TO PUSH AWAY AT DISCOMFORT.
--- NOTE | 2025-03-28 09:25 | NUR ---
PALLIATIVE CARE NOTE: CONSULT RECIEVED FOR DEMENTIA, PULMONARY, MEDICALLY FRAGILE, RENAL, END OF LIFE COMFORT CARE. MEDICAL RECORD REVIEWED. PT IS CURRENTLY ON COMFORT CARE DNR CODE STATUS. ACCORDING TO ER NOTES, PT WAS TO START HOSPICE SERVICES ON MONDAY. NO POLST OR AD ON FILE OR WITH [facility]. SPOKE TO MD THIS AM AND ANTICIPATE ASSISTING WITH DISCHARGE TO HOME WITH HOSPICE.
--- NOTE | 2025-03-28 09:57 | NUR ---
rounded on patient this am. he was asleep during my rounds. discussed case with sql dba. patient asleep. cool to the touch. no signs of discomfort at this time.
--- NOTE | 2025-03-28 19:10 | NUR ---
SHIFT SUMMARY PATIENT ON COMFORT CARE. PATIENT REACTS TO VERBAL STIMULI. REPOSITIONED Q2H. MEDICATED PER EMAR. PALLIATIVE CONSULTED. FAMILY AT BEDSIDE. BED LOCKED AND IN LOWEST POSITION, CALL LIGHT WITHIN REACH.
--- NOTE | 2025-03-29 03:14 | NUR ---
SHIFT SUMMARY: PT IS RESTING IN BED. FAMILY AT BEDSIDE. MEDICATED PER eMAR. CALL LIGHT IS WITHIN REACH. BED IS LOW AND LOCKED.
--- NOTE | 2025-03-29 06:31 | NUR ---
PT ASSUMMED AT 0625. CONFIRMED WITH CHARGE NURSE. MD NOTIFIED. FAMILY AT BEDSIDE.
--- NOTE | 2025-03-29 11:56 | NUR ---
[facility] FAMILY MEMBERS LEAVING ROOM. FEMALE FAMILY MEMBER INQUIRED IF SHE COULD TAKE HOME PT [place] BAND. THIS RN REPLIED "THAT IS YOUR CHOICE, YOU CAN DO THAT IF YOU WANT". FAMILY MEMBER THEN INQUIRED IF I COULD ASSIST WITH BAND REMOVAL, I ACCOMODATED. THE RN WAS ABLE TO SUCCESSFULLY REMOVED YELLOW TONED [place] BAND FROM PT FINGER WITHOUT ISSUE. THIS RN HANDED THE [place]ED[place] BAND DIRECTLY TO FEMALE FAMILY MEMBER "BONNIE".
== END 2025-03-29 06:25 ==
LOC: ER 10:09 → MEDS 10:10
PROVIDERS: Student in an Organized Health Care Education/Training Program; ADMIT Internal Medicine
DX: G92.8 Other toxic encephalopathy (principal); N17.9 Acute kidney failure, unspecified; E87.20 Acidosis, unspecified; I25.10 Atherosclerotic heart disease of native coronary artery without angina pectoris; I48.0 Paroxysmal atrial fibrillation; I11.0 Hypertensive heart disease with heart failure; I50.21 Acute systolic (congestive) heart failure; E11.622 Type 2 diabetes mellitus with other skin ulcer; L97.929 Non-pressure chronic ulcer of unspecified part of left lower leg with unspecified severity; L97.919 Non-pressure chronic ulcer of unspecified part of right lower leg with unspecified severity; Z51.5 Encounter for palliative care; Z66 Do not resuscitate; Z88.8 Allergy status to other drugs, medicaments and biological substances; Z88.1 Allergy status to other antibiotic agents
CPT/HCPCS: 36415; 51701; 70450; 71046; 80053; 80320; 81001; 83605; 85025; 87040; 87086; 93005; 93010; 96365; 99285-25; A9270; G0378; J0696; J7030